=== PATIENT | female | born 1975 | race Caucasian/White ===

== ENCOUNTER 2017-12-08 13:57 | Emergency (ER) | payer BC, OTHER ==
[2017-12-08] MEDS ORDERED: Metoclopramide HCl 10 MG/2 ML VIAL ONE (15:30)
[2017-12-08] MEDS ORDERED: diphenhydrAMINE 50 MG/ML VIAL ONE (15:46)
--- NOTE | 2017-12-08 17:06 | CT ---
EXAM: NONCONTRAST HEAD CT 12/08/17 HISTORY: Headache x1 week. COMPARISON: None. TECHNIQUE: Noncontrast head CT is performed from skull base to skull vertex. FINDINGS: No parenchymal hemorrhage. No extra-axial hematoma. No midline shift. Basilar cisterns are patent. Br ain volume is age appropriate. Cortical arce white matter differentiation is preserved. Ventricles and sulci are patent and symmetric. Adequate aeration of the mastoid air cells. There is evidence of paranasal sinus disease with mucosal thickening and partial opacification. The calvarium is intact. IMPRESSION: 1. No acute intracranial process. 2. Paranasal sinus disease. POS: [facility]
[2017-12-08] MEDS ORDERED: Ketorolac Tromethamine 30 MG/ML VIAL ONE (17:19)
[2017-12-08] MEDS ORDERED: Magnesium Sulfate 2 GM/100 ML BAG ONE (17:19)
[2017-12-08] MEDS ORDERED: Amoxicillin/Potassium Clav 875 MG TAB ONE (17:19)
[2017-12-08] MEDS ORDERED: Dexamethasone 10 MG/ML VIAL ONE (17:41)
== END 2017-12-08 19:00 | disposition home or self-care (01) ==
LOC: ERS 13:57
DX: G43.909 Migraine, unspecified, not intractable, without status migrainosus (principal); J32.9 Chronic sinusitis, unspecified; F41.9 Anxiety disorder, unspecified
CPT/HCPCS: 70450; 96365; 96367; 96375; J1100; J1200; J1885; J2765; J3475; J7620